=== PATIENT | female | born 1970 | race African-American/Black ===

== ENCOUNTER 2020-05-05 09:11 | Observation (INO) ==
[2020-05-05] MEDS ORDERED: ONDANSETRON 4 MG/2 ML VIAL IV STA ×2 (09:37→12:59)
[2020-05-05] MEDS ORDERED: SODIUM CHLORIDE 0.9% 1,000 ML IV STA (09:37)
[2020-05-05 10:00] LABS: Basophils # 0.1 10*3/uL (0.0-0.2); Basophils % 0.5 % (0.0-0.8); Eosinophils # 0.1 10*3/uL (0.0-0.87); Eosinophils % 0.6 % (0.00-10.9); Hematocrit 47.5 VOL% (35.7-47.0); Hemoglobin 15.5 GM/DL (12.0-16.0); Immature Granulocytes % 0.4 %; Immature Granulocytes Absolute 0.05 #; Lymphocytes # 2.9 10*3/uL (1.4-4.0); Lymphocytes % 22.4 % (21.3-54.2); Mean Corpuscular HGB Conc 32.6 GM/DL (32-36); Mean Corpuscular Volume 91.3 FL (87-102); Mean Platelet Volume 10.5 FL (9.6-12.0); Monocytes % 6.4 % (1.7-12.7); Neutrophils % 69.7 % (38.7-73.9); Platelet Count 230 T/CUMM (130-400); Red Cell Distribution Width 13.5 % (9.3-17.3); White Blood Count 13.1 T/CUMM (4-12)
[2020-05-05 10:20] LABS: Albumin 3.7 G/DL (3.4-5.0); Bilirubin,Total 0.7 MG/DL (0.2-1.0); Calcium 9.8 MG/DL (8.5-10.1); Osmolality,Calculated 271.8 MOS/KG (273-304); Total Protein 8.8 G/DL (6.4-8.3)
[2020-05-05 11:30] LABS: Apearance,Urine CLEAR (Clear); Bilirubin,Urine Negative (Negative); Blood, Urine Large mg/dL (Negative); Glucose,Urine (UA) Negative (Negative); Ketones,Urine Negative (Negative); Mucus,Urine Occasional /LPF (Occasional); Nitrite,Urine Negative (Negative); Protein,Urine Negative; RBC,Urine 6 /HPF (0-4); Squamous Epithelial Cell,Urine Occasional /HPF (0-10); Urine Color Straw (Yellow); Urine Specific Gravity 1.005 (1.001-1.035); Urine Urobilinogen < 2.0 EU/DL (0.2-1.0); WBC,Urine 2 /HPF (0-6)
[2020-05-05] MEDS ORDERED: MORPHINE 4 MG/1 ML VIAL ONE (12:55)
[2020-05-05] MEDS ORDERED: MORPHINE 4 MG/1 ML VIAL IV STA (12:59)
[2020-05-05] MEDS ORDERED: BUPIVACAINE MPF 0.25% 30 ML VIAL ONE (13:35)
[2020-05-05] MEDS ORDERED: TISSUE ADHESIVE 1 EACH APPLICATOR TOP ONE (13:35)
[2020-05-05] MEDS ORDERED: LIDOCAINE 1%/EPI INJ 20 ML VIAL ONE (13:35)
[2020-05-05] MEDS ORDERED: cefOXitin 2,000 MG in SYRINGE 1 EACH IV ONE (13:41)
[2020-05-05] MEDS ORDERED: SUGAMMADEX 200 MG/2 ML VIAL IV ONE (14:55)
[2020-05-05] MEDS ORDERED: ALBUTEROL/IPRATROPIUM 3 ML NEB RESP TX ONE (15:00)
[2020-05-05] MEDS ORDERED: ALBUTEROL/IPRATROPIUM 3 ML NEB RESP TX STA (15:08)
[2020-05-05] MEDS ORDERED: propofoL 200 MG/20 ML VIAL IV ONE (16:17)
[2020-05-05] MEDS ORDERED: MIDAZOLAM 2 MG/2 ML VIAL ONE (16:18)
[2020-05-05] MEDS ORDERED: SEVOFLURANE 1 UNIT/15 MINUTE INH ONE (16:18)
[2020-05-05] MEDS ORDERED: fentaNYL 100 MCG/2 ML VIAL ONE (16:18)
[2020-05-05] MEDS ORDERED: LIDOCAINE 2% 5 ML VIAL ONE (16:18)
[2020-05-05] MEDS ORDERED: ROCURONIUM 100 MG/10 ML VIAL IV ONE (16:19)
[2020-05-05] MEDS ORDERED: DEXAMETHASONE 4 MG/1 ML VIAL ONE (16:19)
[2020-05-05] MEDS ORDERED: GLYCOPYRROLATE 0.4 MG/2 ML VIAL ONE (16:19)
[2020-05-05] MEDS ORDERED: NEOSTIGMINE 10 MG/10 ML VIAL ONE (16:19)
[2020-05-05] MEDS ORDERED: SUCCINYLCHOLINE 200 MG/10 ML VIAL ONE (16:19)
[2020-05-05] MEDS ORDERED: PHENYLEPHRINE 1 MG/10 ML SYRINGE IV ONE (16:19)
[2020-05-05] MEDS ORDERED: ONDANSETRON 4 MG/2 ML VIAL ONE (16:19)
[2020-05-05] MEDS ORDERED: MORPHINE 4 MG/1 ML VIAL IV PRN (16:34)
[2020-05-05] MEDS: DEXTROSE 5% NACL 0.9% 1,000 ML IV SCH (16:59)
[2020-05-05] MEDS: cefOXitin 2,000 MG in SYRINGE 1 EACH IV SCH (18:22)
[2020-05-06] MEDS: cefOXitin 2,000 MG in SYRINGE 1 EACH IV SCH ×2 (01:10→07:20)
[2020-05-06] MEDS: DEXTROSE 5% NACL 0.9% 1,000 ML IV SCH (05:50)
[2020-05-06 12:11] VITALS: BP 115/65
== END 2020-05-06 12:22 | disposition home or self-care (01) ==
LOC: N.EDINP 09:11 → N.ED 09:11 → N.3E 13:56
PROVIDERS: ADMIT Surgery; ATTEND Surgery